=== PATIENT | male | born 1985 | race Two or more races ===

== ENCOUNTER 2023-09-11 16:59 | Emergency (ER) | payer OTHER ==
[~2023-09-11] VITALS: Ht 154.9 cm; Wt 160.0 kg
[~2023-09-11 16:59] MED LIST: IBUP-1456 PO; METH-1182 PO
[2023-09-11 18:34] VITALS: BP 160/78; PULSE 84; RESP 16; TEMP 98.2; O2SAT 98
[2023-09-11] MEDS ORDERED: DexAMETHasone SOD PHOS 10MG/1ML VIAL INJ IM ONE (19:45)
[2023-09-11] MEDS ORDERED: ALBUAER3 IN (20:20)
[2023-09-11] MEDS ORDERED: PRED20TA2 PO (20:20)
[2023-09-11] MEDS ORDERED: AZIT-43 PO (20:20)
[2023-09-11 20:45] LABS: COVID19 ANTIGEN SOFIA FIA POSITIVE (NEGATIVE)
== END 2023-09-11 22:23 | disposition home or self-care (01) ==
LOC: ER 16:59
DX: J06.9 Acute upper respiratory infection, unspecified (principal); B97.29 Other coronavirus as the cause of diseases classified elsewhere; F41.9 Anxiety disorder, unspecified; Z98.890 Other specified postprocedural states; Z20.822 Contact with and (suspected) exposure to COVID-19
CPT/HCPCS: 36415; 71045; 87426; 96372; 99284; J1100